=== PATIENT | female | born 1985 | race Caucasian/White ===

== ENCOUNTER 2021-07-08 08:23 | Emergency (ER) | payer BC, SELFPAY ==
--- NOTE | 2021-07-08 08:28 | ED.URI ---
HPI - URI/Sore Throat General Chief Complaint: Upper Respiratory Infection Stated Complaint: sore throat Time Seen by Provider: 07/08/21 08:28 Source: patient and RN notes reviewed History of Present Illness HPI Narrative: Patient is a 35-year-old female who presents the urgent care with complaints of sore throat and hoarseness. Patient states that it started on and she had a negative at home Covid test last night. 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 Patient states that she took Advil for her symptoms. Denies of any fever, nausea, vomiting. No other acute complaints. No acute distress noted. Patient read the plan of care. Some parts of this dictation were generated by voice recognition software and may contain typographical and/or grammatical inaccuracies. Related Data Home Medications Medication Instructions Recorded Confirmed escitalopram oxalate 10 mg PO DAILY 07/08/21 07/08/21 Allergies Allergy/AdvReac Type Severity Reaction Status Date / Time No Known Allergies Allergy Verified 07/08/21 08:35 Review of Systems Review of Systems: CONSTITUTIONAL: Denies fever, chills, or sweats. EYES: Denies visual changes, redness, or discharge. ENT: Denies rhinorrhea, congestion, otalgia. Reports of sore throat and hoarseness CARDIOVASCULAR: Denies chest pain, palpitations, or edema. RESPIRATORY: Denies cough or dyspnea. GASTROINTESTINAL: Denies abdominal pain, nausea, vomiting, or diarrhea. GENITOURINARY: Denies dysuria or hematuria. SKIN: Denies rash or itching. MUSCULOSKELETAL: Denies back pain, joint pain, or myalgia. NEUROLOGIC: Denies headache, numbness, or weakness. All other systems reviewed are negative, except as documented in HPI. PMFSH Comments At the time of my signature, I reviewed and agree with the nursing past medical, surgical, social, and family history. There is no relevant family history pertinent to the patient complaint. Exam Narrative: GENERAL: This is a well-nourished, well-developed patient, in no apparent distress. HEAD: normocephalic, atraumatic. EYES: PERRL. Sclera clear/white. Vision is grossly intact. EARS: External ears normal, auditory canals clear and without drainage, TMs normal without perforation. Hearing grossly intact. NOSE: External nose normal with no obvious nasal discharge, nares without redness, no rhinorrhea. THROAT: Mucous membranes moist. Mild erythema in the posterior oropharynx with exudate noted on the left. Notable hoarse voice NECK: Neck supple CARDIOVASCULAR: Regular rate and rhythm without murmurs, gallops, or rubs. RESPIRATORY: Clear to auscultation. Breath sounds equal bilaterally. No wheezes, rales, or rhonchi. SKIN: warm, intact with no suspicious lesions or rash, good texture and turgor. NEURO: awake, alert, and oriented to person, place and time. There were no obvious focal neurologic abnormalities. EXTREMITIES: No clubbing, cyanosis, or edema. Course Vital Signs Vital signs: Vital Signs Temperature 97.0 F L 07/08/21 08:32 Pulse Rate 75 07/08/21 08:32 Respiratory Rate 16 07/08/21 08:32 Blood Pressure 110/67 07/08/21 08:32 Pulse Oximetry 99 07/08/21 08:32 Temperature 97.0 F L 07/08/21 08:35 Pulse Rate 75 07/08/21 08:35 Respiratory Rate 16 07/08/21 08:35 Blood Pressure 110/67 07/08/21 08:35 Pulse Oximetry 99 07/08/21 08:35 Reviewed MDM - URI/Sore Throat MDM Narrative Medical decision making narrative: Reviewed lab results with the patient. She is aware that strep swab was negative. Educated patient on culture and we will call within 72 hours if culture is positive antibiotics are necessary. Advised the patient to use [id number] medications such as Claritin/Zyrtec/Benadryl in conjunction with Flonase nasal spray, for symptom relief. Use Tylenol/ibuprofen as needed. Follow-up with your PCP within 2 to 5 days or for worsening symptoms or failure to impr
[2021-07-08 08:32] VITALS: BP 110/67; PULSE 75; RESP 16; TEMP 36.1; O2SAT 99
[2021-07-08 08:35] VITALS: BP 110/67; PULSE 75; RESP 16; TEMP 36.1; O2SAT 99
== END 2021-07-08 08:44 | disposition home or self-care (01) ==
PROVIDERS: Emergency Provider Nurse Practitioner Family; PCP Nurse Practitioner Adult Health
DX: J02.9 Acute pharyngitis, unspecified (principal); F32.9 Major depressive disorder, single episode, unspecified
CPT/HCPCS: 87081; 87880; 99213; G0463

== ENCOUNTER 2022-11-20 09:05 | Emergency (ER) | payer OTHER, SELFPAY ==
[2022-11-20 09:16] VITALS: BP 127/79; PULSE 79; RESP 18; TEMP 36.9; O2SAT 97
--- NOTE | 2022-11-20 09:17 | ED.URI ---
HPI - URI/Sore Throat General Chief Complaint: Upper Respiratory Infection Stated Complaint: Cough,Wheezing Time Seen by Provider: 11/20/22 09:17 Source: patient Mode of arrival: ambulatory Limitations: no limitations History of Present Illness HPI Narrative: 37-year-old female presents with complaint of cough, wheezing, chest congestion for 2 weeks. Reports some intermittent shortness of breath with exertion. Afebrile. Did a telehealth visit 2 days ago and was given Tessalon Perles. Reports no improvement. All systems reviewed and negative except as noted above. Related Data Home Medications Medication Instructions Recorded Confirmed escitalopram oxalate 10 mg tablet 10 mg PO DAILY 07/08/21 11/20/22 glycopyrrolate 1 mg tablet 1 mg PO DAILY 11/20/22 11/20/22 Allergies Allergy/AdvReac Type Severity Reaction Status Date / Time sulfamethoxazole Allergy Rash Verified 11/20/22 09:15 [From Bactrim] trimethoprim [From Bactrim] Allergy Rash Verified 11/20/22 09:15 Review of Systems Review of Systems: CONSTITUTIONAL: Denies fever, chills, or sweats. EYES: Denies visual changes, redness, or discharge. ENT: Denies rhinorrhea, congestion, sore throat, or otalgia. CARDIOVASCULAR: Denies chest pain, palpitations, or edema. RESPIRATORY: reports cough, chest congestion and dyspnea with exertion. GASTROINTESTINAL: Denies abdominal pain, nausea, vomiting, or diarrhea. GENITOURINARY: Denies dysuria or hematuria. SKIN: Denies rash or itching. MUSCULOSKELETAL: Denies back pain, joint pain, or myalgia. NEUROLOGIC: Denies headache, numbness, or weakness. PSYCHIATRIC: Denies anxiety or depression. All other systems reviewed are negative, except as documented in HPI. PMFSH Comments At time of signature, agree with nursing past medical, surgical, social and family history. There is no relevant family history pertinent to the presenting complaint. Exam Narrative: GENERAL: This is a well-nourished, well-developed patient, in no apparent distress. HEAD: normocephalic, atraumatic. EYES: PERRL. Sclera clear/white. Vision is grossly intact. EARS: External ears normal, auditory canals clear and without drainage, TMs normal without perforation. Hearing grossly intact. NOSE: External nose normal with no obvious nasal discharge, nares without redness, no rhinorrhea. THROAT: Mucous membranes moist, posterior pharynx clear. NECK: Neck supple, non-tender without lymphadenopathy, masses or thyromegaly. CARDIOVASCULAR: Regular rate and rhythm without murmurs, gallops, or rubs. RESPIRATORY: coarse lung sounds throughout all lung goldman. Breath sounds equal bilaterally. No wheezes, rales, or rhonchi. SKIN: warm, Dry, intact with no suspicious lesions or rash, good texture and turgor. NEURO: awake, alert, and oriented to person, place and time. There were no obvious focal neurologic abnormalities. EXTREMITIES: No joint tenderness, effusion, or edema noted. Course Course Level of Care: Express Care Visit Vital Signs Vital signs: Vital Signs Temperature 36.9 C 11/20/22 09:16 Pulse Rate 79 11/20/22 09:16 Respiratory Rate 18 11/20/22 09:16 Blood Pressure 127/79 11/20/22 09:16 Pulse Oximetry 97 11/20/22 09:16 Oxygen Delivery Room Air 11/20/22 09:16 Temperature 36.9 C 11/20/22 09:16 Pulse Rate 79 11/20/22 09:16 Respiratory Rate 18 11/20/22 09:16 Blood Pressure 127/79 11/20/22 09:16 Pulse Oximetry 97 11/20/22 09:16 Oxygen Delivery Room Air 11/20/22 09:16 Review MDM - URI/Sore Throat MDM Narrative Medical decision making narrative: Patient is aware of diagnosis, understands and agrees to treatment plan. Anticipatory guidance given. Patient agrees to follow-up as directed and is aware of reasons to seek care at the emergency department. Portions of this record may have been created with voice recognition software Offered patient chest x-ray for further motion for pneumonia. She sa
== END 2022-11-20 09:33 | disposition home or self-care (01) ==
PROVIDERS: Emergency Provider Nurse Practitioner Family
DX: J22 Unspecified acute lower respiratory infection (principal); F32.A Depression, unspecified
CPT/HCPCS: 99213; G0463

== ENCOUNTER 2022-12-26 13:00 | Emergency (ER) | payer OTHER, SELFPAY ==
[2022-12-26 13:11] VITALS: BP 130/72; PULSE 76; RESP 18; TEMP 36.7; O2SAT 99
[2022-12-26 13:12] VITALS: BP 130/72; PULSE 76; RESP 18; TEMP 36.7; O2SAT 99
--- NOTE | 2022-12-26 13:53 | ED.URI ---
HPI - URI/Sore Throat General Chief Complaint: Upper Respiratory Infection Stated Complaint: Sore Throat History of Present Illness HPI Narrative: 37-year-old female here with two day onset of sore throat and painful swallow. Also reports runny nose and cough. 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 She has not taken anything for the symptoms. Pain does not inhibit her ability to tolerate food, liquid, or sleep. Denies fevers, myalgias, cough, rhinorrhea, n/v/d, dysuria, shortness of breath, or wheezing. Related Data Home Medications Medication Instructions Recorded Confirmed escitalopram oxalate 10 mg tablet 10 mg PO DAILY 07/08/21 12/26/22 glycopyrrolate 1 mg tablet 4 mg PO DAILY 12/26/22 12/26/22 Allergies Allergy/AdvReac Type Severity Reaction Status Date / Time sulfamethoxazole AdvReac Mild Rash Verified 12/26/22 13:11 [From Bactrim] trimethoprim [From Bactrim] AdvReac Mild Rash Verified 12/26/22 13:11 Review of Systems Review of Systems: CONSTITUTIONAL: Denies body aches, fever, chills, or sweats. EYES: Denies visual changes, redness, or discharge. ENT: Denies congestion, or otalgia. Endorses sore throat. CARDIOVASCULAR: Denies chest pain, palpitations, or edema. RESPIRATORY: Denies dyspnea. GASTROINTESTINAL: Denies abdominal pain, nausea, vomiting, or diarrhea. SKIN: Denies rash, itching, or wounds. MUSCULOSKELETAL: Denies back pain, joint pain, or myalgia. NEUROLOGIC: Denies headache PMFSH Past Medical History Medical History (Updated 12/26/22 @ 14:30 by Nisa Moore, ROD MACHINE OPERATOR) Hyperhidrosis Exam Narrative: GENERAL: Well-appearing, no acute distress. EYES: conjunctivae clear ENT: Mucous membranes moist. Oropharynx erythematous without lesions. Tonsils grade III and without exudate. No drooling, no hoarseness, no trismus, uvula midline. No tripod positioning, hot potato voice, or soft palate swelling. NECK: Supple. No lymphadenopathy CHEST: Clear to auscultation, breath sounds equal. No respiratory distress, speaks in full sentences. HEART: Regular rate and rhythm. No murmur heard. SKIN: Warm, dry, no rash. NEURO: Alert and oriented x3. Course Course Emergency Course: Patient is aware of diagnosis, understands and agrees to treatment plan. Anticipatory guidance given. Patient agrees to follow-up as directed and is aware of reasons to seek care at the emergency department. Portions of this record may have been created with voice recognition software Level of Care: Express Care Visit Vital Signs Vital signs: Vital Signs Temperature 98.1 F 12/26/22 13:11 Pulse Rate 76 12/26/22 13:11 Respiratory Rate 18 12/26/22 13:11 Blood Pressure 130/72 12/26/22 13:11 Pulse Oximetry 99 12/26/22 13:11 Oxygen Delivery Room Air 12/26/22 13:11 Temperature 98.1 F 12/26/22 13:12 Pulse Rate 76 12/26/22 13:12 Respiratory Rate 18 12/26/22 13:12 Blood Pressure 130/72 12/26/22 13:12 Pulse Oximetry 99 12/26/22 13:12 Oxygen Delivery Room Air 12/26/22 13:12 MDM - URI/Sore Throat MDM Narrative Medical decision making narrative: Strep result reviewed with pt. Discussed the prescribed antibiotic treatment plan and need for quarantine for 24 hours until after initiating antibiotic therapy. Advise supportive treatments. Patient is appropriate for outpatient treatment and follow-up. Differential Diagnosis Differential diagnosis: Likely upper respiratory infection, viral infection and pharyngitis Lab Data Labs: Strep Screen Positive Group A Strep *(Reference Range: Negative)* Discharge Plan Discharge Clinical Impression: Strep pharyngitis Patient Disposition: Home, Self-Care Condition: Stable Instructions: Strep Throat (ED) Additional Instructions: - Take the antibiotic as directed. Fever and sore throat typically resolve within one to three d
== END 2022-12-26 13:56 | disposition home or self-care (01) ==
PROVIDERS: Emergency Provider Nurse Practitioner Family; PCP Nurse Practitioner Family
DX: J02.0 Streptococcal pharyngitis (principal)
CPT/HCPCS: 87880; 99213; G0463

== ENCOUNTER 2023-01-11 10:49 | Emergency (ER) | payer OTHER, SELFPAY ==
[2023-01-11 11:38] VITALS: BP 128/72; PULSE 72; RESP 20; TEMP 36.7; O2SAT 100
--- NOTE | 2023-01-11 11:59 | ED.GENADULT ---
HPI - General Adult General Chief complaint: Upper Respiratory Infection Stated complaint: sorethroat Time Seen by Provider: 01/11/23 11:59 Source: patient Mode of arrival: ambulatory Limitations: no limitations History of Present Illness HPI narrative: 37-year-old female patient presents to the [facility] with complaints of sore throat, congestion and runny nose that started about 1-2 days ago. Patient states that she was treated for strep with amoxicillin about a week ago and did finish the antibiotic exactly a week from today. Patient states she had concerns that she might have strep again. Denies fevers, body aches or chills. Patient denies taking anything for her symptoms Related Data Home Medications Medication Instructions Recorded Confirmed escitalopram oxalate 10 mg tablet 10 mg PO DAILY 07/08/21 01/11/23 glycopyrrolate 1 mg tablet 4 mg PO DAILY 12/26/22 01/11/23 Allergies Allergy/AdvReac Type Severity Reaction Status Date / Time sulfamethoxazole AdvReac Mild Rash Verified 01/11/23 11:40 [From Bactrim] trimethoprim [From Bactrim] AdvReac Mild Rash Verified 01/11/23 11:40 Review of Systems Review of Systems: CONSTITUTIONAL: Denies fever, chills, or sweats. EYES: Denies visual changes, redness, or discharge. ENT: positive rhinorrhea, congestion, positive sore throat, denies otalgia. CARDIOVASCULAR: Denies chest pain, palpitations, or edema. RESPIRATORY: Denies cough or dyspnea. GASTROINTESTINAL: Denies abdominal pain, nausea, vomiting, or diarrhea. GENITOURINARY: Denies dysuria or hematuria. SKIN: Denies rash or itching. MUSCULOSKELETAL: Denies back pain, joint pain, or myalgia. NEUROLOGIC: Denies headache, numbness, or weakness. PSYCHIATRIC: Denies anxiety or depression. PMFSH Past Medical History Medical History Hyperhidrosis Surgical History Surgical History History of Comments At the time of my signature I agree with nursing past medical history, surgical, social, and family history. There is no relevant family history pertinent to the presenting complaint. Exam Narrative: GENERAL: Well-appearing, well-nourished, and in no acute distress. HEAD: Normocephalic, atraumatic. EYES: PERRLA and EOMI. ENT: Nares clear, no rhinorrhea or epistaxis. Mucous membranes moist. NECK: Supple. No lymphadenopathy CHEST: Clear to auscultation. No respiratory distress. HEART: Regular rate and rhythm. No murmur heard. Normal peripheral pulses. ABDOMEN: Soft, nontender, nondistended, normal active bowel sounds. EXTREMITIES: Normal range of motion. No edema. SKIN: Warm, dry, no rash. NEURO: No focal deficits. Alert and oriented x3. Course Course Level of Care: Express Care Visit Vital Signs Vital signs: Vital Signs Temperature 36.7 C 01/11/23 11:38 Pulse Rate 72 01/11/23 11:38 Respiratory Rate 20 01/11/23 11:38 Blood Pressure 128/72 01/11/23 11:38 Pulse Oximetry 100 01/11/23 11:38 Oxygen Delivery Room Air 01/11/23 11:38 Temperature 36.7 C 01/11/23 11:38 Pulse Rate 72 01/11/23 11:38 Respiratory Rate 20 01/11/23 11:38 Blood Pressure 128/72 01/11/23 11:38 Pulse Oximetry 100 01/11/23 11:38 Oxygen Delivery Room Air 01/11/23 11:38 vital signs reviewed Medical Decision Making MDM Narrative Medical decision making narrative: notify patient that her strep today is negative. Discussed with her that we will send it off to the lab and if it does come back positive we will call her and place her on antibiotics at that time. Recommend that patient try some [id number] antihistamines for possible allergies that could be causing her symptoms as well as Tylenol, ibuprofen, warm salt water gargles, hot tea and honey to help soothe the throat. Patient verbalized understanding denies any other questions or concerns at this time. [place]
== END 2023-01-11 12:20 | disposition home or self-care (01) ==
PROVIDERS: Emergency Provider Nurse Practitioner Family; PCP Nurse Practitioner Family
DX: J02.9 Acute pharyngitis, unspecified (principal)
CPT/HCPCS: 87081; 87880; 99213; G0463